=== PATIENT | female | born 1955 | race Caucasian/White ===

== ENCOUNTER 2018-01-31 07:56 | Outpatient (CLI) | payer MEDICARE ==
--- NOTE | 2018-01-31 11:43 | CT ---
CT ABDOMEN AND PELVIS WITH CONTRAST: HISTORY: R10.13 (epigastric pain). COMPARISON: None. FINDINGS: There is a central venous catheter with the tip at the cavoatrial junction. There is abnormal thicke jessica of the gastric fundus, body, and antrum, which appear separate from the bypass site. The stomac h is not distended and appears to be very narrow. There is an abnormal area of hypoenhancement along the greater curvature of the stomach, abutting the pancreatic body. There is soft tissue attenuatio n between the pancreatic body and the posterior margin of the stomach, without a clearly defined fat plane. There does appear to be some retained normal mucosa near the antrum. The splenic artery and vein are patent. Along the posterior right lobe of the liver, hepatic segment 7, is a hypodensity abutting the capsule , with a poorly marginated border. There is also abnormal hypodensity along hepatic segment 4B, near the falciform ligament, although this may reflect focal fat superimposed upon a fatty liver. The spleen is unremarkable. No dilated loops of large or small bowel. No hydronephrosis. Moderate diverticular disease of the sigmoid colon without active inflammation. Mildly increased mes enteric fat of the sigmoid colon suggesting prior bouts of diverticulitis. There is posterior spinal fusion at L5-S1. IMPRESSION: 1. Abnormal thickening and lack of distention of nearly the entire stomach including the gastric antrum, body, and fundus, with loss of the normal fat plane between the posterior wall of the stomach and the pancreas. The differential includes an infiltrative malignant process of the stomach versus resolving inflammation from prior pancreatitis, given the history of p ancreatitis. Upper endoscopy is recommended. 2. Abnormal hypodensity of hepatic segment 7 with poorly marginated borders, with a similar appearin g hypodensity of hepatic segment 4B, although this may reflect focal fat superimposed upon hepatic st eatosis. At a minimum, a liver protocol CT or MRI, preferably MRI, would be recommended in six month s. 3. Mildly increased mesenteric fat of the sigmoid colon, suggesting prior sequelae of diverticulitis . 4. No acute inflammatory process of the abdomen. 5. Patent splenic artery and vein. POS: [facility]
== END 2018-01-31 07:57 | disposition home or self-care (01) ==
LOC: CT 07:56
PROVIDERS: ATTEND Internal Medicine
DX: R10.13 Epigastric pain (principal); K76.89 Other specified diseases of liver; E65 Localized adiposity
CPT/HCPCS: 74177; 82565

== ENCOUNTER 2018-02-08 09:04 | Emergency (ER) | payer MEDICARE ==
[2018-02-08] MEDS ORDERED: Ondansetron ODT 4 MG TAB ONE (10:23)
[2018-02-08 11:01] LABS: #Eosinphils 0.1 thou/uL (0.0-0.7); #Lymphocytes 1.8 thou/uL (1.20-3.40); #Monocytes 0.5 thou/uL (0.11-0.59); #Neutrophils 3.8 thou/uL (1.40-6.50); %Basophils 0.4 % (0.0-1.0); %Eosinophils 1.6 % (0.0-10.0); %Lymphocytes 28.9 % (21.0-51.0); %Monocytes 8.4 % (0.0-10.0); %Neutrophils 60.7 % (42.0-75.0); Hemoglobin 12.5 g/dL (12.0-16.0); Mean Corpuscular HGB CONC 33.2 g/dL (32.0-36.0); Mean Corpuscular Hemoglobin 33.2 pg (27.0-31.0); Mean Platelet Volume 7.9 fL (7.4-10.4); Platelet Count 176 thou/uL (130-400); RBC Distribution Width 13.7 % (11.5-14.5); Red Blood Cell (RBC) Count 3.76 mill/uL (4.20-5.40); White Blood Cell (WBC) Count 6.2 thou/uL (4.8-10.8)
[2018-02-08 11:24] LABS: ALT (SGPT) 8 U/L (8-55); AST (SGOT) 15 U/L (5-34); Albumin 3.3 g/dL (3.4-4.8); Alkaline Phosphatase 79 U/L (40-150); Anion Gap 10 mmol/L (10-20); BUN (Urea Nitrogen) 15 mg/dL (9.8-20.1); Bilirubin, Total 0.9 mg/dL (0.2-1.2); Calc. Creatinine Clearance 0 mL/min (70-130); Calcium 8.5 mg/dL (7.8-10.44); Carbon Dioxide 27 mmol/L (23-31); Chloride 106 mmol/L (98-107); Estimated GFR-MDRD 77; Globulin 2.7 g/dL (2.4-3.5); Glucose 94 mg/dL (80-115); Lipase 89 U/L (8-78); Potassium 3.3 mmol/L (3.5-5.1); Sodium 140 mmol/L (136-145)
[2018-02-08 11:30] LABS: Blood, Urine Negative (Negative); Clarity CLOUDY (Clear); Glucose, Urine (Dipstick) Negative (Negative); Leukocyte Small (Negative); Nitrite Negative (Negative); Protein, Urine (Dipstick) 100 mg/dL (Neg-Trace); Specific Gravity, Urine 1.034 (1.002-1.036); pH, Urine 5.5 (5.0-9.0)
[2018-02-08 11:31] LABS: Bacteria/HPF None Seen HPF (None Seen)
[2018-02-08 11:34] LABS: Pathc Cast-AUWi Flag 21.95 (0-2.49)
[2018-02-08 11:44] LABS: Bilirubin Moderate (Negative); Hyaline Casts/LPF 4-6 HYALINE CAST LPF (0-3 Hyaline); Other Casts/LPF None Seen LPF (0-3 Hyaline)
[2018-02-08] MEDS ORDERED: Fentanyl 100 MCG/2 ML VIAL ONE (11:49)
== END 2018-02-08 15:19 | disposition home or self-care (01) ==
LOC: ERS 09:04
DX: K86.1 Other chronic pancreatitis (principal); F41.9 Anxiety disorder, unspecified; F32.9 Major depressive disorder, single episode, unspecified; F17.210 Nicotine dependence, cigarettes, uncomplicated; Z79.899 Other long term (current) drug therapy
CPT/HCPCS: 80053; 81003; 81015; 83690; 85025; 87086; 96361; 96374; J1642; J3010; Q0162

== ENCOUNTER 2018-03-19 11:31 | Observation (INO) | payer MEDICARE ==
[2018-03-19 12:44] LABS: Hemoglobin 13.3 g/dL (12.0-16.0); Mean Corpuscular HGB CONC 34.6 g/dL (32.0-36.0); Mean Corpuscular Hemoglobin 33.1 pg (27.0-31.0); Mean Corpuscular Volume 95.6 fL (78.0-98.0); Mean Platelet Volume 8.1 fL (7.4-10.4); Platelet Count 164 thou/uL (130-400); RBC Distribution Width 13.5 % (11.5-14.5); Red Blood Cell (RBC) Count 4.02 mill/uL (4.20-5.40); White Blood Cell (WBC) Count 6.4 thou/uL (4.8-10.8)
[2018-03-19 12:58] LABS: ALT (SGPT) 8 U/L (8-55); AST (SGOT) 16 U/L (5-34); Albumin 3.1 g/dL (3.4-4.8); Alkaline Phosphatase 72 U/L (40-150); Anion Gap 17 mmol/L (10-20); BUN (Urea Nitrogen) 10 mg/dL (9.8-20.1); Band 3 % (5-11); Calc. Creatinine Clearance 0 mL/min (70-130); Calcium 8.1 mg/dL (7.8-10.44); Carbon Dioxide 21 mmol/L (23-31); Chloride 103 mmol/L (98-107); Eosinophils 1 % (0-10); Estimated GFR-MDRD Greater than 90; Globulin 2.8 g/dL (2.4-3.5); Glucose 92 mg/dL (80-115); Lipase 38 U/L (8-78); Lymphocytes 26 % (21-51); MDiff Complete? YES; Monocytes 9 % (0-10); Neutrophil 61 % (42-75); Protein, Total 5.9 g/dL (6.0-8.3); RBC Morphology Normal; Sodium 138 mmol/L (136-145)
[2018-03-19 13:01] LABS: Potassium 2.7 mmol/L (3.5-5.1)
[2018-03-19] MEDS ORDERED: Potassium Chloride 20 MEQ/100 ML PREMIX BAG ONE (13:06)
[2018-03-19] MEDS ORDERED: Diabetic Tussin 200 MG/10 ML UDCUP PO PRN (13:53)
[2018-03-19] MEDS ORDERED: Ondansetron HCl/PF 4 MG/2 ML Vial IVP PRN (13:53)
[2018-03-19] MEDS ORDERED: Mag-Al 1200 mg/1200 mg/30 ML UDCUP PO PRN (13:53)
[2018-03-19] MEDS ORDERED: Bisacodyl 5 MG TAB PO PRN ×2 (13:53)
[2018-03-19] MEDS ORDERED: Calcium Carbonate 500 MG ChewTAB PO PRN (13:53)
[2018-03-19] MEDS ORDERED: Acetaminophen 325 MG TAB PO PRN (13:53)
[2018-03-19] MEDS ORDERED: Benzonatate 100 MG CAP PO PRN (13:53)
[2018-03-19] MEDS ORDERED: Senokot 8.6 MG TAB PO PRN ×2 (13:53)
[2018-03-19] MEDS ORDERED: cloNIDine 0.1 MG TAB PO PRN (13:53)
[2018-03-19] MEDS ORDERED: hydrALAZINE 20 MG/ML VIAL SLOW IVP PRN (13:53)
[2018-03-19] MEDS ORDERED: Loratadine 10 MG TAB PO PRN (13:53)
[2018-03-19] MEDS ORDERED: Nitroglycerin 0.4 MG TAB (25 Tab Bottle) SL PRN (13:53)
[2018-03-19 14:04] LABS: CKMB 0.4 ng/mL (0-6.6); Troponin I 0.015 ng/mL (< 0.028)
[2018-03-19 15:40] VITALS: BMI 27.2
[2018-03-19] MEDS: Sodium Chloride 0.9% 1,000 ML IV SCH ×2 (15:49→22:00)
[2018-03-19] MEDS ORDERED: Lorazepam 2 MG/ML VIAL SLOW IVP PRN (15:50)
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
[2018-03-19] MEDS: Famotidine/PF 20 mg/2ml Vial SLOW IVP SCH (20:53)
[2018-03-20] MEDS: Sodium Chloride 0.9% 1,000 ML IV SCH ×3 (01:07→13:01)
--- NOTE | 2018-03-20 04:27 | CON ---
DATE OF CONSULTATION: 03/19/2018 CHIEF COMPLAINT: Abdominal pain and nausea and vomiting. HISTORY OF PRESENT ILLNESS: Ms. Carter is a 62-year-old woman who has had chronic epigastric pain wit h nausea and vomiting and no odynophagia since 09/2017. She reports a 50-pound weight loss since the n. She eats a small amount of liquid each day, but otherwise has minimal oral intake. She had been following with [facility], but transferred care to Dr. Merida back in 01/2018. CT scan of the ab domen and pelvis was done which showed marked thickening of the stomach potentially concerning for an infiltrative process. She has had a prior Sreedhar-en-Y gastric bypass. There is reported history of p ancreatitis from previous hospitalizations and she was started on Creon by Dr. Merida, initially with some improvement in her pain. She does report constipation for the most part of a bowel movement onc e a week, but then when she does have a bowel movement, she can have multiple liquidy stools per day. Her pain is intermittent, but can go on hours at a time. She complains of a severe aching epigastr ic pain that comes on, she swallows anything by mouth. She also gets as substernal, aching pain as s he swallows. She had a CT scan of the abdomen and pelvis at [facility] in 09/2017 which showed a 10 mm lesion in the right hepatic lobe. She believes her last EGD and colonoscopy were 7-10 years ago. She does report a history of colon polyps. PAST MEDICAL HISTORY: Possible history of pancreatitis, diverticulosis, colon polyps, anxiety, depre ssion, arthritis, asthma, thyroid disease. PAST SURGICAL HISTORY: Appendectomy, cholecystectomy, hysterectomy, Sreedhar-en-Y gastric bypass, endosc opy, spinal fusion, and tonsillectomy. FAMILY HISTORY: Negative for GI malignancies. SOCIAL HISTORY: She quit smoking few weeks ago. No drugs or alcohol. ALLERGIES: CEPHALOSPORINS, IODINATED CONTRAST, LEVAQUIN, PENICILLIN, SULFA, VIBRAMYCIN. MEDICATIONS: Prior to admission, Butrans patch, Protonix, clonazepam, Lyrica, venlafaxine, Ativan, a lbuterol, [place] thyroid, Zofran. REVIEW OF SYSTEMS: Negative x10 systems reviewed except as stated in the history of present illness. PHYSICAL EXAMINATION: VITAL SIGNS: Temperature 98.1, pulse 67, blood pressure 140/84. GENERAL: She is in no acute distress, alert and oriented x3. HEENT: Eyes have no scleral icterus. Oropharynx is clear, without lesions. NECK: No cervical or supraclavicular lymphadenopathy. LUNGS: Clear to auscultation bilaterally. HEART: Regular rate and rhythm without murmur. ABDOMEN: Has mild tenderness in the epigastric region without guarding. Bowel sounds are present. EXTREMITIES: No lower extremity edema. LABORATORY DATA: White blood cell count 6.4, hemoglobin 13.3, platelets 164. Creatinine 0.6, albumi n 3.1, lipase 38. Bilirubin 1.0, AST 16, ALT 8, alkaline phosphatase 72. IMPRESSION: Chronic epigastric pain with nausea and vomiting and odynophagia over the last [address] scan in January did showed thickening of the stomach with possible concern for infiltrative process . We will need to rule out gastric malignancy; however, this could just be due to non-distention. G iven her previous gastric bypass surgery, we might not be able to visualize the area of concern. Giv en her symptoms; however, with odynophagia and immediate pain upon swallowing, this would suggest sangeetha t the esophagus or stomach pouch should have some involvement of this is the source. There is some q uestion of pancreatitis previously; however, unable to confirm this with objective evidence of elevat ed pancreatic enzymes or findings of inflammatory changes by CT scan currently. RECOMMENDATIONS: Esophagogastroduodenoscopy tomorrow.
[2018-03-20 05:13] LABS: #Basophils 0.1 thou/uL (0.0-0.2); #Lymphocytes 1.3 thou/uL (1.20-3.40); #Monocytes 0.4 thou/uL (0.11-0.59); #Neutrophils 3.8 thou/uL (1.40-6.50); %Eosinophils 0.8 % (0.0-10.0); %Lymphocytes 23.3 % (21.0-51.0); %Monocytes 6.7 % (0.0-10.0); %Neutrophils 68.2 % (42.0-75.0); Hemoglobin 12.6 g/dL (12.0-16.0); Mean Corpuscular HGB CONC 33.6 g/dL (32.0-36.0); Mean Corpuscular Hemoglobin 32.6 pg (27.0-31.0); Mean Corpuscular Volume 97.1 fL (78.0-98.0); Mean Platelet Volume 8.3 fL (7.4-10.4); Platelet Count 179 thou/uL (130-400); RBC Distribution Width 13.6 % (11.5-14.5); Red Blood Cell (RBC) Count 3.88 mill/uL (4.20-5.40); White Blood Cell (WBC) Count 5.5 thou/uL (4.8-10.8)
[2018-03-20 05:20] LABS: Anion Gap 13 mmol/L (10-20); BUN (Urea Nitrogen) 7 mg/dL (9.8-20.1); Calc. Creatinine Clearance 114 mL/min (70-130); Calcium 8.4 mg/dL (7.8-10.44); Carbon Dioxide 25 mmol/L (23-31); Chloride 105 mmol/L (98-107); Estimated GFR-MDRD Greater than 90; Glucose 78 mg/dL (80-115); Sodium 140 mmol/L (136-145)
[2018-03-20] MEDS ORDERED: Potassium Chloride 40 MEQ in Premix Bag 1 BAG IVPB SCH (07:15)
[2018-03-20] MEDS: Potassium Chloride 20 MEQ in Premix Bag 1 BAG IVPB SCH ×2 (07:31→09:20)
[2018-03-20] MEDS: Famotidine/PF 20 mg/2ml Vial SLOW IVP SCH (07:32)
[2018-03-20] MEDS: Enoxaparin Sodium 40 MG/0.4 ML SYRINGE SC SCH (07:32)
[2018-03-20 08:44] LABS: Bilirubin Negative (Negative); Blood, Urine Negative (Negative); Clarity CLEAR (Clear); Glucose, Urine (Dipstick) Negative (Negative); Leukocyte Negative (Negative); Nitrite Negative (Negative); Protein, Urine (Dipstick) Negative (Neg-Trace); Specific Gravity, Urine 1.014 (1.002-1.036)
[2018-03-20 08:47] LABS: Bacteria/HPF None Seen HPF (None Seen); Hyaline Casts/LPF 0-3 HYALINE CAST LPF (0-3 Hyaline); Pathc Cast-AUWi Flag 0.14 (0-2.49); RBC/HPF 0-3 HPF (0-3); WBC/HPF 0-3 HPF (0-3)
--- NOTE | 2018-03-20 11:48 | PDOC.PN ---
- Subjective Encounter Start Date: 03/20/18 Encounter Start Time: 11:46 Subjective: still feels poorly.no vomiting but dry heaving & nauseated -: NPo for EGD later today - Objective Resuscitation Status: Resuscitation Status FULL:Full Resuscitation MAR Reviewed: Yes Vital Signs & Weight: Vital Signs (12 hours) Temp Pulse Pulse Pulse Resp BP BP 03/20/18 11:40 98.4 F 65 18 03/20/18 10:20 66 69 168/88 H 167/88 H 03/20/18 08:00 98.3 F 67 16 03/20/18 07:46 98.3 F 67 16 03/20/18 05:07 98.8 F 80 16 BP BP Pulse Ox Pulse Ox Pulse Ox 03/20/18 11:40 147/80 H 97 03/20/18 10:20 97 96 03/20/18 08:00 03/20/18 07:46 145/91 H 93 L 03/20/18 05:07 141/87 H 96 Weight Weight 169 lb I&O: 03/19/18 03/20/18 03/21/18 06:59 06:59 06:59 Intake Total 1440 Output Total 500 Balance 940 Result Diagrams: 03/20/18 04:07 03/20/18 04:07 Additional Labs: labs reviewed Phys Exam - Physical Examination Constitutional: NAD HEENT: PERRLA, sclera anicteric, oral pharynx no lesions, 2+ tonsils dry mucosa but better than yesterday Neck: no nodes, no JVD, supple, full ROM Respiratory: no wheezing, no rales, no rhonchi, clear to auscultation bilateral Cardiovascular: RRR, no significant murmur Gastrointestinal: soft, non-tender, no distention, positive bowel sounds Musculoskeletal: no edema, pulses present Neurological: non-focal, normal sensation, moves all 4 limbs Psychiatric: normal affect, A&O x 3 Skin: no rash Dx/Plan (1) Acute on chronic pancreatitis Code(s): K85.90 - ACUTE PANCREATITIS WITHOUT NECROSIS OR INFECTION, UNSP; K86.1 - OTHER CHRONIC PANCREATITIS Status: Acute (2) Hypokalemia Code(s): E87.6 - HYPOKALEMIA Status: Acute (3) Intractable vomiting with nausea Code(s): R11.2 - NAUSEA WITH VOMITING, UNSPECIFIED Status: Acute (4) H/O muscular dystrophy Code(s): Z86.69 - PERSONAL HISTORY OF DIS OF THE NERVOUS SYS AND SENSE ORGANS Status: Chronic - Plan DVT proph w/SCDs EGD today.? stomach thickening on CT doen in 01/28. -: cont supportive & symptomatic care. -: replace an drecheck Potassium.improving. -: rehab eval per pt request-failure to thrive & significant Wt loss over 6 mo -: am labs * . Review of Systems - Review of Systems Constitutional: weakness, malaise, other (weight loss). negative: fever, chills , sweats ENT: negative: Ear Pain, Ear Discharge, Nose Pain, Nose Discharge, Nose Congestion, Mouth Pain, Mouth Swelling, Throat Pain, Throat Swelling, Other Respiratory: negative: Cough, Dry, Shortness of Breath, Hemoptysis, SOB with Excertion, Pleuritic Pain, Sputum, Wheezing Cardiovascular: negative: chest pain, palpitations, orthopnea, paroxysmal nocturnal dyspnea, edema, light headedness, other Gastrointestinal: Nausea. negative: Vomiting, Abdominal Pain, Diarrhea, Constipation, Melena, Hematochezia, Other Genitourinary: negative: Dysuria, Frequency, Incontinence, Hematuria, Retention , Other Musculoskeletal: negative: Neck Pain, Shoulder Pain, Arm Pain, Back Pain, Hand Pain, Leg Pain, Foot Pain, Other Skin: negative: Rash, Lesions, Price, Bruising, Other Neurological: negative: Weakness, Numbness, Incoordination, Change in Speech, Confusion, Seizures, Other - Medications/Allergies Allergies/Adverse Reactions: Allergies Allergy/AdvReac Type Severity Reaction Status Date / Time Iodinated Contrast- Oral and Allergy HIVES, Verified 03/19/18 20:38 IV Dye ITCHING Medications: Current Medications Acetaminophen (Tylenol) 650 mg PO Q4H PRN PRN Reason: Headache/Fever or Pain Al Hydroxide/Mg Hydroxide (Maalox) 30 ml PO Q6H PRN PRN Reason: Heartburn or Indigestion Benzonatate (Tessalon) 100 mg PO Q4H PRN PRN Reason: Cough Bisacodyl (Dulcolax) 10 mg PO DAILYPRN PRN PRN Reason: Constipation Calcium Carbonate (Tums) 1,000 mg PO Q4H PRN PRN Reason: Heartburn or Indigestion Clonidine (Catapres) 0.1 mg PO Q4H PRN PRN Reason: Systolic BP > 160 Enoxaparin Sodium (Lovenox) 40 mg SC 0900 [facility] Last Admin: 03/20/18 07:32 Dose: Not Given Famotidine (Pepcid) 20 mg SLOW IVP Q12HR [facility] Last Admin: 03/20/18 07:32 Dose: 20 mg Guaifenesin (Robitussin Sf) 200 mg PO Q4H PRN PRN Reason: Cough Hydralazine HCl (Apresoline) 10 mg SLOW IVP Q4H PRN PRN Reason: Systolic BP > 170 Sodium Chloride (Normal Saline 0.9%) 1,000 mls @ 125 mls/hr IV .Q8H [facility] Last Admin: 03/20/18 07:18 Dose: 1,000 mls Potassium Chloride 20 meq/ (Device) 100 mls @ 50 mls/hr IVPB Q2H [facility] Stop: 03/20/18 11:59 Last Admin: 03/20/18 09:20 Dose: 100 mls Loratadine (Claritin) 10 mg PO DAILYPRN PRN PRN Reason: Sinus Symptoms Lorazepam (Ativan) 1 mg SLOW IVP Q4H PRN PRN Reason: Anxiety/Agitation Nitroglycerin (Nitrostat) 0.4 mg SL Q5MIN PRN PRN Reason: Chest Pain Ondansetron HCl (Zofran) 4 mg IVP Q6H PRN PRN Reason: Nausea/Vomiting Last Admin: 03/20/18 07:38 Dose: 4 mg Senna (Senokot) 2 tab PO HSPRN PRN PRN Reason: Constipation Sodium Chloride (Flush - Normal Saline) 10 ml IVF Q12HR [facility] Last Admin: 03/20/18 07:32 Dose: 10 ml Sodium Chloride (Flush - Normal Saline) 10 ml IVF PRN PRN PRN Reason: Saline Flush
[2018-03-20] MEDS ORDERED: PROPOFOL 200 MG/20 ML VIAL ONE (13:28)
[2018-03-20] MEDS ORDERED: Lidocaine 1% PF 5 ML VIAL ONE (13:28)
[2018-03-20] MEDS ORDERED: Promethazine HCl 25 MG/ML VIAL SLOW IVP PRN (15:56)
[2018-03-20] MEDS ORDERED: Ondansetron HCl/PF 4 MG/2 ML Vial IVP PRN (15:56)
[2018-03-20] MEDS ORDERED: Promethazine HCl 25 MG/ML VIAL IM PRN (15:56)
[2018-03-20] MEDS: Sucralfate 1 GM/10 ML UDCUP PO SCH ×2 (16:50→21:01)
[2018-03-20] MEDS: D5 0.9% NS w/ 20 mEq KCl 1,000 ML IV SCH (16:50)
[2018-03-20] MEDS: Pantoprazole 40 MG VIAL IVP SCH (21:01)
--- NOTE | 2018-03-21 00:12 | OP ---
PROCEDURE: Esophagogastroduodenoscopy. PREPROCEDURE DIAGNOSES: 1. Recurrent vomiting. 2. History of previous Sreedhar-en-Y gastric bypass. 3. CAT scan on 01/31/2018. CAT scan showed possible thickening of the gastric body and antrum. Thi s is likely related to a decompressed distal gastric remnant after the gastric bypass. POSTPROCEDURE DIAGNOSES: 1. Stricture gastrojejunal anastomosis, not permitting to pass the scope with quite a bit of edema. This was dilated with a 10 mm balloon in the past. Biopsies were obtained. 2. Gastric pouch was quite small and friable. 3. Esophagus was normal. 4. The duodenum distal to the pouch looks fine. 5. The anastomosis between the Sreedhar limb and the distal limb are not reached. ANESTHESIA: TIVA. PROCEDURE IN DETAIL: After the patient informed of the risks, benefits, possible complications of en doscopy including perforation, reactions to medication and aspiration, informed consent was obtained. The patient brought to endoscopy suite where she was sedated in gradual fashion. Once she was comf ortable, a bite block was placed in the incisural orifice. The endoscope was advanced through the es ophagus, stomach and second and third portion of the duodenum and slowly removed. There was good vis ualization of the mucosa. There were no masses, lesions or AV malformations identified in the esopha atif. The stomach was notable for a very small gastric remnant and then a very tight stricture at the gastrojejunal anastomosis, but not able to be passed the 10 mm scope. It was dilated with 10 mm pyl oric channel balloon and then passed. This appears to be strictured. There is ulceration, quite a b it of edema and inflammation area. Biopsies were obtained, but there was no firm tissue to suggest m alignancy, otherwise no signs of perforation. The staple line could not be identified. The scope wa s advanced beyond this into the proximal jejunum as far as it could. The Sreedhar limb anastomosis was n ot identified. The scope was removed. The patient tolerated the procedure well. No complications. RECOMMENDATIONS: 1. IV Protonix q.12 hours. 2. Ice chips. 3. Carafate. 4. Avoid all NSAIDs. 5. No smoking. 6. If patient is unable to tolerate p.o. after feeding tube placed via the nose down to the jejunum, distal to the stricture to consider other management of the stricture such as stenting or reop eration. 7. I think the CAT scan changes are on CT related to nondistended gastric remnant. 8. Would check magnesium phosphorous, thiamine, B12 in light of the patient's previous bariatric joan miguel.
[2018-03-21] MEDS: D5 0.9% NS w/ 20 mEq KCl 1,000 ML IV SCH ×3 (01:03→16:54)
[2018-03-21] MEDS: Hydrocodone-Acetamin 15 ML UDCUP PO PRN ×2 (01:50→11:06)
[2018-03-21 05:27] LABS: Anion Gap 11 mmol/L (10-20); BUN (Urea Nitrogen) Less than 4 mg/dL (9.8-20.1); Calc. Creatinine Clearance 109 mL/min (70-130); Calcium 8.4 mg/dL (7.8-10.44); Carbon Dioxide 26 mmol/L (23-31); Chloride 105 mmol/L (98-107); Estimated GFR-MDRD Greater than 90; Glucose 110 mg/dL (80-115); Iron 40 ug/dL (50-170); Magnesium 1.5 mg/dL (1.6-2.6); Potassium 3.1 mmol/L (3.5-5.1); Sodium 139 mmol/L (136-145)
[2018-03-21] MEDS ORDERED: IRON SUCROSE COMPLEX 100 MG/5 ML SLOW IVP SCH (08:45)
[2018-03-21] MEDS ORDERED: Potassium Chloride 40 MEQ in Premix Bag 1 BAG IVPB SCH (08:45)
[2018-03-21] MEDS ORDERED: Folic Acid 1 MG TAB PO SCH (09:00)
[2018-03-21] MEDS: Sucralfate 1 GM/10 ML UDCUP PO SCH ×2 (09:43→13:30)
[2018-03-21] MEDS: Enoxaparin Sodium 40 MG/0.4 ML SYRINGE SC SCH ×2 (09:43→11:50)
[2018-03-21] MEDS: Pantoprazole 40 MG VIAL IVP SCH (09:43)
--- NOTE | 2018-03-21 11:49 | PRG ---
DATE OF SERVICE: 03/21/2018 REASON FOR CONSULTATION: Nausea, vomiting, midepigastric abdominal pain. 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 This was subsequently dilat ed to approximately 10 mm. Since then, she states that she has been able to tolerate clear liquids a dequately with increased midepigastric abdominal pain, but minimal nausea and no vomiting. She curre ntly states that she currently denies any fevers, chills, dysphagia, odynophagia or GI bleeding. OBJECTIVE: VITAL SIGNS: Temperature 97.9, pulse 76, blood pressure 136/92, respiratory rate 16, satting 97% on room air. GENERAL: Patient is lying in bed in no acute distress. Alert and oriented x4. CARDIOVASCULAR: Regular rate and rhythm. RESPIRATORY : Clear to auscultation bilaterally. ABDOMEN: Normoactive bowel sounds, soft, nondistended. Tenderness to palpation in the mid epigastri c/periumbilical region. EXTREMITIES: No cyanosis, clubbing or edema. LABORATORY DATA: Chemistry with sodium of 139, potassium 3.1, chloride 105, CO2 26, BUN less than 4, creatinine 0.65, glucose 110, iron 40, ferritin 54, folate 6, B12 366. IMAGING DATA: EGD performed on 03/20/2018 showed a very small gastric remnant with surgical change c onsistent with a Sreedhar-en-Y gastric bypass and a very tight stricture at the gastrojejunal anastomosis that was not able to be passed initially with the 1 cm scope. It was dilated to approximately 10 mm using a pyloric channel balloon with ability to pass the anastomosis at that point. The mucosa dist al to the stricture appeared normal, but there was a fair amount of edema and inflammation at the str icture/ulceration of the anastomotic site as well. ASSESSMENT AND PLAN: The patient is a 62-year-old female with past medical history of diverticulosis , colon polyps, anxiety, depression, arthritis, asthma, thyroid disease and possible pancreatitis pre senting with acute onset of midepigastric abdominal pain, nausea, and vomiting. MIDEPIGASTRIC ABDOMINAL PAIN/NAUSEA/VOMITING: The patient is presenting with acute onset of increase d nausea, vomiting, abdominal pain that had been present intermittently for the last 1-2 months. She had been evaluated as an outpatient for a possible acute on chronic pancreatitis picture, but a CT s can obtained in 01/2018 showed marked thickening of the stomach potentially concerning for an infiltr ative process. EGD was recommended at that point in time, but the patient was unable to comply. How ever, over the last 3-4 days, she had worsening of her symptoms prompted admission to the [facility] ER. While in the ER, she was noted to have significant hypokalemia and admitted to the hospital fo r further evaluation. She subsequently underwent EGD on 03/20/2018 which showed a high grade strictu re at the gastrojejunal anastomosis as part of her Sreedhar-en-Y gastric bypass. This was subsequently d ilated to approximately 10 mm in diameter. Currently, she is tolerating a clear liquid diet with min imal nausea, but no further episodes of vomiting. She does continue to have some midepigastric abdom inal tenderness, but this is improved when compared to admission as well. RECOMMENDATIONS: 1. Would continue PPI twice daily for gastric ulceration at the gastrojejunal anastomosis. 2. Would decrease sucralfate administration to 1 gram twice daily. 3. Would advance the patient to a full liquid diet and assess for tolerance. If the patient is able to tolerate a full liquid diet without increased nausea, vomiting, or midepigastric abdominal pain, could consider discharge to home with follow up in the GI Clinic. 4. Patient will need a repeat EGD in approximately 8 weeks for reevaluation of the gastrojejunal felicia stomosis and repeat dilation performed at that time. We will continue to follow up while the patient is still in the hospital. Please call with any addit ional questions.
[2018-03-21] MEDS: Potassium Chloride 20 MEQ in Premix Bag 1 BAG IVPB SCH ×2 (12:31→12:32)
[2018-03-21] MEDS ORDERED: Potassium Chloride 20 MEQ TAB PO SCH (13:15)
--- NOTE | 2018-03-21 13:28 | PDOC.PN ---
- Subjective Encounter Start Date: 03/21/18 Subjective: no vomiting,nausea improved.does not feel like eating solids yet/ -: no abd apin.no F/C.no diarrhea - Objective Resuscitation Status: Resuscitation Status FULL:Full Resuscitation MAR Reviewed: Yes Vital Signs & Weight: Vital Signs (12 hours) Temp Pulse Resp BP BP Pulse Ox 03/21/18 11:24 98.6 F 68 16 131/76 93 L 03/21/18 08:00 98.6 F 68 16 03/21/18 07:58 97.9 F 76 16 136/92 H 97 03/21/18 04:55 98.6 F 65 16 138/82 95 Weight Admit Weight 169 lb Weight 169 lb I&O: 03/20/18 03/21/18 03/22/18 06:59 06:59 06:59 Intake Total 1440 2311 120 Output Total 500 800 Balance 940 1511 120 Result Diagrams: 03/20/18 04:07 03/21/18 04:13 Additional Labs: Laboratory Tests 03/21/18 03/21/18 04:13 04:13 Magnesium 1.5 L Iron 40 L Vitamin B12 366 Folate 6.00 L Phys Exam - Physical Examination Constitutional: NAD pale HEENT: PERRLA, moist MMs, sclera anicteric, oral pharynx no lesions Neck: no nodes, no JVD, supple, full ROM Respiratory: no wheezing, no rales, no rhonchi, clear to auscultation bilateral Cardiovascular: RRR, no significant murmur Gastrointestinal: soft, non-tender, no distention, positive bowel sounds Musculoskeletal: no edema, pulses present Neurological: non-focal, normal sensation, moves all 4 limbs Psychiatric: normal affect, A&O x 3 Skin: no rash Dx/Plan (1) Intractable vomiting with nausea Code(s): R11.2 - NAUSEA WITH VOMITING, UNSPECIFIED Status: Acute Comment: S/ P EGD 03/20/18 (2) Gastrojejunal anastomotic stricture Code(s): K91.89 - OTH POSTPROCEDURAL COMPLICATIONS AND DISORDERS OF DGSTV SYS Status: Acute Comment: s/p dilatation 03/20/18 (3) Hypokalemia Code(s): E87.6 - HYPOKALEMIA Status: Acute (4) H/O muscular dystrophy Code(s): Z86.69 - PERSONAL HISTORY OF DIS OF THE NERVOUS SYS AND SENSE ORGANS Status: Chronic (5) Acute on chronic pancreatitis Code(s): K85.90 - ACUTE PANCREATITIS WITHOUT NECROSIS OR INFECTION, UNSP; K86.1 - OTHER CHRONIC PANCREATITIS Status: Ruled-out Comment: Ruled out (6) Iron deficiency Code(s): E61.1 - IRON DEFICIENCY Status: Acute (7) Folic acid deficiency Code(s): E53.8 - DEFICIENCY OF OTHER SPECIFIED B GROUP VITAMINS Status: Acute - Plan PT/OT, out of bed/ambulate, DVT proph w/SCDs cont PPI and sucralfate,reduce to BID> -: stricture dilated .advance diet to CLD then full liquids.If tolerates,DC h -: replace & recheck potassium & magnesium -: supplement IV iron.Levels low .start PO when able to take-as an OP -: refuses Rehab.will consult CM for HH assistance. * .HD stable. * appreciate GI input.OP f/u Review of Systems - Review of Systems Constitutional: weakness, malaise. negative: fever, chills, sweats, other ENT: negative: Ear Pain, Ear Discharge, Nose Pain, Nose Discharge, Nose Congestion, Mouth Pain, Mouth Swelling, Throat Pain, Throat Swelling, Other Respiratory: negative: Cough, Dry, Shortness of Breath, Hemoptysis, SOB with Excertion, Pleuritic Pain, Sputum, Wheezing Cardiovascular: negative: chest pain, palpitations, orthopnea, paroxysmal nocturnal dyspnea, edema, light headedness, other Gastrointestinal: Nausea. negative: Vomiting, Abdominal Pain, Diarrhea, Constipation, Melena, Hematochezia, Other Genitourinary: negative: Dysuria, Frequency, Incontinence, Hematuria, Retention , Other Musculoskeletal: negative: Neck Pain, Shoulder Pain, Arm Pain, Back Pain, Hand Pain, Leg Pain, Foot Pain, Other Skin: negative: Rash, Lesions, Price, Bruising, Other Neurological: negative: Weakness, Numbness, Incoordination, Change in Speech, Confusion, Seizures, Other - Medications/Allergies Allergies/Adverse Reactions: Allergies Allergy/AdvReac Type Severity Reaction Status Date / Time Iodinated Contrast- Oral and Allergy HIVES, Verified 03/19/18 20:38 IV Dye ITCHING Medications: Current Medications Acetaminophen (Tylenol) 650 mg PO Q4H PRN PRN Reason: Headache/Fever or Pain Hydrocodone Bitart/Acetaminophen (Hydrocodone-Apap 7.5-325/15) 15 ml PO Q6H PRN PRN Reason: Moderate Pain (4-6) Last Admin: 03/21/18 11:06 Dose: 15 ml Al Hydroxide/Mg Hydroxide (Maalox) 30 ml PO Q6H PRN PRN Reason: Heartburn or Indigestion Benzonatate (Tessalon) 100 mg PO Q4H PRN PRN Reason: Cough Bisacodyl (Dulcolax) 10 mg PO DAILYPRN PRN PRN Reason: Constipation Calcium Carbonate (Tums) 1,000 mg PO Q4H PRN PRN Reason: Heartburn or Indigestion Clonidine (Catapres) 0.1 mg PO Q4H PRN PRN Reason: Systolic BP > 160 Enoxaparin Sodium (Lovenox) 40 mg SC 0900 [facility] Last Admin: 03/21/18 11:50 Dose: Not Given Folic Acid (Folvite) 1 mg PO DAILY [facility] Last Admin: 03/21/18 09:44 Dose: 1 mg Guaifenesin (Robitussin Sf) 200 mg PO Q4H PRN PRN Reason: Cough Hydralazine HCl (Apresoline) 10 mg SLOW IVP Q4H PRN PRN Reason: Systolic BP > 170 Potassium Chloride/Dextrose/Sod Cl (D5 0.9% Ns W/ 20 Meq Kcl) 1,000 mls @ 125 mls/hr IV .Q8H [facility] Last Admin: 03/21/18 12:49 Dose: Not Given Iron Sucrose (Venofer) 200 mg SLOW IVP ONE [facility] Stop: 03/21/18 21:00 Last Admin: 03/21/18 09:45 Dose: 200 mg Loratadine (Claritin) 10 mg PO DAILYPRN PRN PRN Reason: Sinus Symptoms Lorazepam (Ativan) 1 mg SLOW IVP Q4H PRN PRN Reason: Anxiety/Agitation Last Admin: 03/20/18 21:01 Dose: 1 mg Nitroglycerin (Nitrostat) 0.4 mg SL Q5MIN PRN PRN Reason: Chest Pain Ondansetron HCl (Zofran) 4 mg IVP Q6H PRN PRN Reason: Nausea/Vomiting Last Admin: 03/20/18 07:38 Dose: 4 mg Pantoprazole Sodium (Protonix) 40 mg IVP Q12HR GEOFFRE[facility] Last Admin: 03/21/18 09:43 Dose: 40 mg Potassium Chloride (Klor-Con) 40 meq PO NOW [facility] Stop: 03/21/18 15:00 Senna (Senokot) 2 tab PO HSPRN PRN PRN Reason: Constipation Sodium Chloride (Flush - Normal Saline) 10 ml IVF Q12HR [facility] Last Admin: 03/21/18 09:44 Dose: 10 ml Sodium Chloride (Flush - Normal Saline) 10 ml IVF PRN PRN PRN Reason: Saline Flush Sucralfate (Carafate) 1 gm PO BID [facility] Stop: 03/31/18 21:01
[2018-03-21 15:34] VITALS: BP 155/77; TEMP 98.7
[2018-03-21] MEDS ORDERED: Sucralfate 1 GM/10 ML UDCUP PO SCH (21:00)
--- NOTE | 2018-03-22 00:01 | DIS ---
DATE OF ADMISSION: 03/19/2018 DATE OF DISCHARGE: 03/21/2018 PRIMARY CARE PHYSICIAN: Francie Harris MD CONDITION AT THE TIME OF DISCHARGE: Stable and improved. DISCHARGE DISPOSITION: Home with [facility]. DISCHARGE DIAGNOSES: 1. 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 2. Intractable nausea and vomiting secondary to #1. 3. Hypokalemia secondary to #2. 4. History of muscular dystrophy. 5. History of chronic pancreatitis. 6. Iron deficiency. 7. Folic acid deficiency. DISCHARGE MEDICATIONS: 1. Protonix 40 mg p.o. b.i.d. 2. Sucralfate 1 gram p.o. b.i.d. 3. Folic acid dose of 0.4 mg daily. 4. Ferrous sulfate 325 mg p.o. b.i.d. INHOUSE CONSULTATION: Gastroenterology, Dr. Merida and Dr. Rangel. PROCEDURES DONE IN THE HOSPITAL: EGD by Dr. Rangel on 03/20/2018, which showed a stricture at the ga strojejunal junction with relation to her history of Sreedhar-en-Y in the past. This was dilated. Gastr ic pouch was quite small and friable. Esophagus was normal. Duodenum distal to the pouch looked fin e and the anastomosis between the Sreedhar limb and the distal limb was not reached. HISTORY OF PRESENTING ILLNESS: Ms. Carter is a 62-year-old pleasant female with diagnosis of chronic pancreatitis for the last 6 months as well as history of hypothyroidism and gastric bypass surgery wh o presented to the emergency room with complaints of intractable nausea and vomiting. The patient re ported severe weight loss and very poor p.o. intake for the last 6 months or so. Upon presentation, she was hemodynamically stable, but was very dehydrated and hypokalemic. IV fluids, IV potassium chl oride were given. Her lipase was normal. She was initially admitted with a presumptive diagnosis of acute on chronic pancreatitis and intractable nausea and vomiting. Please see admission history and physical for further detail. The patient reported that [facility], so [facility] was consulted. HOSPITAL COURSE: Ms. Carter was initially kept n.p.o. and she underwent EGD. EGD did show stricture at the gastrojejunal junction. Dr. Merida initially saw the patient, she had acute CAT scan done on 0 01/31/2018, which showed possible thickening of the gastric body and antrum. With regard to the findi ngs of the stricture, it was dilated. Diet was advanced and she was able to tolerate initially clear liquids and then full liquids. She was seen by Dr. Merida prior to discharge and he recommended cont inuation of proton-pump inhibitor twice a day and Carafate twice a day. She would need repeat EGD in approximately 8 weeks for reevaluation at the gastrojejunal anastomosis and repeat dilatation perfor med at that time. Otherwise, she was eager to go home and was cleared by GI for discharge today. She was seen and examined prior to discharge. Please see hospitalist progress note from today's date for further detail and [id number] interaction. She is hemodynamically stable. Rehabilitation was arranged for her but she declined. Home health was arranged for her instead as per her request. She was found to be hypokalemic and hypomagnesemic, which were replaced by IV route. Her iron level was found to be low at 40, so she was given IV iron in the hospital. B12 level was checked, which wa s normal. Folic acid was low at 6, so she was started on folic acid orally in the hospital and was g iven prescription for the same. Discharge plan was discussed with the patient and she verbalized understanding.
== END 2018-03-21 17:53 | disposition home health service (06) ==
LOC: ERS 11:31 → 2SW 13:45
PROVIDERS: ADMIT Internal Medicine; ATTEND Internal Medicine
PROC: 0DB68ZX Excision of Stomach, Via Natural or Artificial Opening Endoscopic, Diagnostic (ICD-10-PCS; principal; 2018-03-19)
PROC: 0D768ZZ Dilation of Stomach, Via Natural or Artificial Opening Endoscopic (ICD-10-PCS; 2018-03-19)
DX: K31.89 Other diseases of stomach and duodenum (principal); R11.2 Nausea with vomiting, unspecified; E87.6 Hypokalemia; K25.9 Gastric ulcer, unspecified as acute or chronic, without hemorrhage or perforation; E03.9 Hypothyroidism, unspecified; F41.8 Other specified anxiety disorders; K85.90 Acute pancreatitis without necrosis or infection, unspecified; K86.1 Other chronic pancreatitis; M19.90 Unspecified osteoarthritis, unspecified site; J45.909 Unspecified asthma, uncomplicated; E53.8 Deficiency of other specified B group vitamins; Z87.891 Personal history of nicotine dependence; Z86.010 Personal history of colon polyps; Z79.899 Other long term (current) drug therapy; Z88.0 Allergy status to penicillin; Z88.1 Allergy status to other antibiotic agents; Z88.2 Allergy status to sulfonamides; Z91.041 Radiographic dye allergy status; Z98.1 Arthrodesis status; Z98.84 Bariatric surgery status
CPT/HCPCS: 43239; 43245; 80048 ×2; 80053; 81001; 82553; 82607; 82728; 82746; 83540; 83690; 83735 ×2; 84100; 84425; 84484; 85025 ×2; 88305; 88312; 93005; 96361 ×4; 96365; 96366; 96367; 96375 ×4; 96376 ×2; 97110; 97116; 97139 ×2; 99285; C1726; G0378 ×2; G8978; G8979; 36415; A4216; C9113; J1642; J1650; J1756; J2001; J2060; J2270; J2405; J2704; J3475; J3480; J7050; S0028

== ENCOUNTER 2018-04-25 15:07 | Emergency (ER) | payer MEDICARE ==
[2018-04-25] MEDS ORDERED: Ondansetron HCl/PF 4 MG/2 ML Vial ONE (15:48)
[2018-04-25 16:05] LABS: Hemoglobin 13.6 g/dL (12.0-16.0); Mean Corpuscular Hemoglobin 32.8 pg (27.0-31.0); Mean Corpuscular Volume 96.7 fL (78.0-98.0); Mean Platelet Volume 7.9 fL (7.4-10.4); Platelet Count 219 thou/uL (130-400); RBC Distribution Width 13.7 % (11.5-14.5); Red Blood Cell (RBC) Count 4.15 mill/uL (4.20-5.40); White Blood Cell (WBC) Count 6.6 thou/uL (4.8-10.8)
[2018-04-25 16:18] LABS: ALT (SGPT) 14 U/L (8-55); AST (SGOT) 25 U/L (5-34); Albumin 2.9 g/dL (3.4-4.8); Alkaline Phosphatase 99 U/L (40-150); Anion Gap 19 mmol/L (10-20); BUN (Urea Nitrogen) 16 mg/dL (9.8-20.1); Calc. Creatinine Clearance 0 mL/min (70-130); Calcium 8.5 mg/dL (7.8-10.44); Carbon Dioxide 22 mmol/L (23-31); Chloride 98 mmol/L (98-107); Estimated GFR-MDRD 86; Globulin 2.9 g/dL (2.4-3.5); Glucose 96 mg/dL (80-115); Lipase 42 U/L (8-78); Protein, Total 5.8 g/dL (6.0-8.3); Sodium 136 mmol/L (136-145)
[2018-04-25 16:22] LABS: Potassium 2.6 mmol/L (3.5-5.1)
[2018-04-25 16:29] LABS: Band 3 % (5-11); Lymphocytes 14 % (21-51); MDiff Complete? YES; Monocytes 2 % (0-10); Neutrophil 81 % (42-75); PLT Morphology Comment Appears Adequate
--- NOTE | 2018-04-25 17:12 | CT ---
CT OF THE ABDOMEN AND PELVIS WITHOUT CONTRAST 04/25/18 COMPARISON: 01/31/18. HISTORY: Abdominal pain, nausea and vomiting for weeks. TECHNIQUE: Multiple contiguous axial images were obtained in a CT of the abdomen and pelvis without contrast. Co te reformats were performed. FINDINGS: There is diffuse fatty infiltration of the liver. There are stable hypodensities adjacent to the falc iform ligament and in the far right lobe of the liver which are nonspecific. The gallbladder is not s een and has likely been removed. The kidneys, adrenal glands, spleen, and pancreas are unremarkable, although evaluation is limited without IV contrast. Postsurgical changes are seen in the stomach. There is stable loss of the fat plane between the pancr eas and the stomach with slight increased fullness in the gastric remnant anteriorly. There is an felicia stomotic staple line within the small bowel. The small bowel is otherwise unremarkable without signif icant distention. A small amount of free fluid is seen in the pelvis. The patient is status post hyst erectomy. No abdominal or pelvic lymphadenopathy are seen. Atherosclerotic calcifications are seen in the aorta . Degenerative changes and postsurgical changes are seen in the spine. The visualized inferior thorax a nd abdominal wall soft tissues are unremarkable. IMPRESSION: 1. No evidence of acute intra-abdominal/pelvic abnormality. 2. Fatty liver. 3. Nonspecific hypodensities in the liver may represent cysts or areas of more focal fatty infil tration. POS: SATNAM
[2018-04-25] MEDS ORDERED: Potassium Chloride 20 MEQ TAB ONE (18:40)
== END 2018-04-25 18:45 | disposition home or self-care (01) ==
LOC: ERS 15:07
DX: R11.2 Nausea with vomiting, unspecified (principal); R10.9 Unspecified abdominal pain; E03.9 Hypothyroidism, unspecified; F41.9 Anxiety disorder, unspecified; F32.9 Major depressive disorder, single episode, unspecified; F17.210 Nicotine dependence, cigarettes, uncomplicated
CPT/HCPCS: 36415; 74176; 80053; 83690; 85025; 96361; 96372; 96374; J1642; J2405